=== PATIENT | male | born 1975 | race Caucasian/White ===

== ENCOUNTER 2023-12-05 12:04 | Emergency (ER) | payer OTHER ==
[2023-12-05 12:37] VITALS: RESP 20; TEMP 98; BMI 28.0
[2023-12-05] MEDS ORDERED: MECLIZINE HCL 12.5 MG TABLET PO ONE ×2 (13:03→14:35)
[2023-12-05] MEDS ORDERED: ONDANSETRON 4 MG/2 ML VIAL IVPUSH ONE ×2 (13:03→14:43)
[2023-12-05] MEDS ORDERED: MECLIZINE HCL 12.5 MG TABLET ONE ×2 (13:09→15:15)
[2023-12-05] MEDS ORDERED: ONDANSETRON 4 MG/2 ML VIAL ONE ×2 (13:09→15:15)
[2023-12-05 13:37] LABS: BASO % 0.1 % (0-2.0); EOS % 0.1 % (0-4.5); HEMATOCRIT 40.8 % (35.4-49); HEMOGLOBIN 13.6 GM/dL (11.7-16.9); LYMPH % 5.6 % (8-40); MCH 31.2 pg (25.7-33.7); MCHC 33.4 g/dl (32.0-35.9); MEAN CELL VOLUME 93.4 fl (80-96); MEAN PLT VOLUME 8.1 fl (7.5-11.1); MONO % 5.9 % (3.8-10.2); NEUT % 88.3 % (42.8-82.8); PLATELET COUNT 275 10^3/uL (134-434); RBC 4.36 M/mm3 (4.00-5.60); RDW 13.2 % (11.9-15.9); WHITE BLOOD COUNT 13.9 K/mm3 (4.0-10.0)
[2023-12-05 13:51] LABS: POTASSIUM 4.2 mmol/L (3.5-5.1)
[2023-12-05 13:54] LABS: ALBUMIN 3.8 g/dl (3.4-5.0); BLOOD UREA NITROGEN 10.6 mg/dL (7-18); CALCIUM 9.8 mg/dL (8.5-10.1)
[2023-12-05 13:57] LABS: CREATININE 1.2 mg/dL (0.55-1.3)
[2023-12-05 13:59] LABS: BILIRUBIN,TOTAL 0.5 mg/dL (0.2-1); TOT PROT 7.5 g/dl (6.4-8.2)
[2023-12-05] MEDS ORDERED: SODIUM CHLORIDE 0.9% 500 ML INFUS.BAG IV ONE (14:43)
[2023-12-05] MEDS ORDERED: MECLIZINE HCL 25 MG TABLET (FP) PO ONE (14:43)
[2023-12-05] MEDS ORDERED: MECLIZINE HCL 25 MG TABLET (FP) ONE (15:14)
[2023-12-05 17:16] VITALS: BP 124/55; PULSE 60
== END 2023-12-05 17:15 | disposition home or self-care (01) ==
LOC: JER 12:04
PROC: 3E033GC Introduction of Other Therapeutic Substance into Peripheral Vein, Percutaneous Approach (ICD-10-PCS; principal; 2023-12-05)
PROC: 3E033GC Introduction of Other Therapeutic Substance into Peripheral Vein, Percutaneous Approach (ICD-10-PCS; 2023-12-05)
DX: R11.2 Nausea with vomiting, unspecified (principal); R42 Dizziness and giddiness; Z20.822 Contact with and (suspected) exposure to COVID-19
CPT/HCPCS: 0241U-QW; 36415; 71045-TC-FY; 80053; 84484; 85025; 93005; 93010; 99285-25